=== PATIENT | female | born 1950 | race African-American/Black ===

== ENCOUNTER 2016-12-28 15:19 | Emergency (ER) | payer MEDICARE, MEDICAID ==
[~2016-12-28] VITALS: Ht 162.6 cm; Wt 74.0 kg
[2016-12-28 20:15] VITALS: BP 137/87
== END 2016-12-28 21:54 | disposition home or self-care (01) ==
LOC: ER 15:20
DX: G89.29 Other chronic pain (principal); M19.90 Unspecified osteoarthritis, unspecified site; J45.909 Unspecified asthma, uncomplicated; I10 Essential (primary) hypertension; Z88.0 Allergy status to penicillin; Z88.5 Allergy status to narcotic agent; Z88.6 Allergy status to analgesic agent; Z88.1 Allergy status to other antibiotic agents
CPT/HCPCS: 99281

== ENCOUNTER 2022-01-24 14:56 | Emergency (ER) | payer MEDICARE, MEDICAID ==
[~2022-01-24] VITALS: Ht 162.6 cm; Wt 77.0 kg
[2022-01-24 17:30] VITALS: BP 158/84
[2022-01-24] MEDS ORDERED: TRAMADOL 50MG TABLET PO ONE (17:30)
[2022-01-24] MEDS ORDERED: AMLODIPINE 5MG TABLET PO ONE (17:30)
[2022-01-24] MEDS ORDERED: TRAM50TA3 MT (17:31)
[2022-01-24] MEDS ORDERED: AMLO5TAB88 MT (17:31)
== END 2022-01-24 17:51 | disposition home or self-care (01) ==
LOC: ER 14:56
DX: I10 Essential (primary) hypertension (principal); M54.50 Low back pain, unspecified; M19.90 Unspecified osteoarthritis, unspecified site; J45.909 Unspecified asthma, uncomplicated; Z98.890 Other specified postprocedural states; Z88.6 Allergy status to analgesic agent; Z88.5 Allergy status to narcotic agent; Z88.0 Allergy status to penicillin
CPT/HCPCS: 99283

== ENCOUNTER 2022-05-10 05:16 | Emergency (ER) | payer MEDICARE, MEDICAID ==
[~2022-05-10] VITALS: Ht 154.9 cm; Wt 76.0 kg
[~2022-05-10 05:16] MED LIST: ALBU6.7H9 INH; AMLO5TAB88 MT; LORA2TAB95 MT; TRAM50TA3 MT; TRAZ-252 MT
[2022-05-10 05:19] VITALS: BP 142/80
[2022-05-10] MEDS ORDERED: VIST25 MT (05:30)
== END 2022-05-10 06:00 | disposition home or self-care (01) ==
LOC: ER 05:32
DX: F41.9 Anxiety disorder, unspecified (principal); I10 Essential (primary) hypertension; J45.909 Unspecified asthma, uncomplicated; Z88.0 Allergy status to penicillin; Z88.6 Allergy status to analgesic agent; Z88.5 Allergy status to narcotic agent; Z88.8 Allergy status to other drugs, medicaments and biological substances; Z88.1 Allergy status to other antibiotic agents; Z79.899 Other long term (current) drug therapy; Z98.890 Other specified postprocedural states; Z90.49 Acquired absence of other specified parts of digestive tract
CPT/HCPCS: 99283

== ENCOUNTER 2022-12-07 07:45 | Emergency (ER) | payer MEDICARE, MEDICAID ==
[~2022-12-07] VITALS: Ht 162.6 cm; Wt 82.0 kg
[~2022-12-07 07:45] MED LIST changes: +ALBU6.7H3 INH; -ALBU6.7H9 INH; +VIST25 MT
[2022-12-07 07:47] VITALS: BP 184/121
[2022-12-07] MEDS ORDERED: ACETAMINOPHEN 325MG TABLET PO ONE (08:30)
[2022-12-07] MEDS ORDERED: TOPUD PO (08:56)
== END 2022-12-07 09:56 | disposition home or self-care (01) ==
LOC: ER 08:09
DX: M25.552 Pain in left hip (principal); I10 Essential (primary) hypertension; Z88.0 Allergy status to penicillin; Z88.6 Allergy status to analgesic agent; Z98.890 Other specified postprocedural states; Z90.49 Acquired absence of other specified parts of digestive tract; W18.30XA Fall on same level, unspecified, initial encounter; Y93.89 Activity, other specified; Y92.89 Other specified places as the place of occurrence of the external cause; Y99.8 Other external cause status
CPT/HCPCS: 99283